=== PATIENT | male | born 1980 | race Asian ===

== ENCOUNTER 2017-02-18 09:57 | Emergency (ER) | payer OTHER ==
[2017-02-18] MEDS ORDERED: Morphine INJ* 4 MG/ML 1 ML SYRINGE IV ONE ×2 (10:13→13:05)
[2017-02-18] MEDS ORDERED: Ondansetron INJ* 2 MG/ML VIAL IV ONE (10:14)
[2017-02-18] MEDS ORDERED: Ketorolac INJ* 30 MG/ML 1 ML VIAL IV PUSH ONE (10:19)
[2017-02-18] MEDS: NS 0.9% 1000 ML* 2,000 ML IV ONE ×2 (10:25→11:30)
[2017-02-18 10:33] LABS: Hematocrit 45 % (42-52); Hemoglobin 14.5 g/dl (14.0-18.0); Mean Corpuscular HGB Conc 32 g/dl (31-36); Mean Corpuscular Hemoglobin 30 pg (27-31); Mean Corpuscular Volume 94 fL (80-94); Mean Platelet Volume 9 um3 (7.4-10.4); Red Blood Count 4.76 10^6/ul (4.0-5.4); Red Cell Distribution Width 13 % (10.5-15); White Blood Count 12.3 10^3/ul (3.5-10.8)
[2017-02-18 10:44] LABS: ALT 17 U/L (7-52); AST 16 U/L (13-39); Albumin 4.5 g/dL (3.2-5.2); Alkaline Phosphatase 67 U/L (34-104); Anion Gap 8 mmol/L (2-11); BUN/Creatinine Ratio 19.1 (8-20); Blood Urea Nitrogen 18 mg/dL (6-24); CO2 Carbon Dioxide 21 mmol/L (22-32); Calcium 8.8 mg/dL (8.6-10.3); Chloride 109 mmol/L (101-111); EGFR African American 115.5 (>60); EGFR Non-African American 89.8 (>60); Globulin 2.9 g/dL (2-4); Glucose 124 mg/dL (70-100); Lipase 17 U/L (11.0-82.0); Potassium 3.7 mmol/L (3.5-5.0); Sodium 138 mmol/L (133-145); Total Protein 7.4 g/dL (6.4-8.9)
--- NOTE | 2017-02-18 11:50 | RAD ---
CLINICAL HISTORY: Left-sided flank pain COMPARISON: None TECHNIQUE: Multiple contiguous axial CT scans were obtained of the abdomen and pelvis, without intravenous contrast enhancement. Coronal and sagittal multiplanar reformations are submitted for review. Oral contrast was not administered. FINDINGS: The study is limited by the lack of intravenous contrast. This limits evaluation of the solid organs and vasculature. LUNG BASES: The lung bases are clear. LIVER: The liver is normal in shape, size, contour, and attenuation. BILE DUCTS: There is no intrahepatic or extrahepatic biliary dilatation. GALLBLADDER: The gallbladder is normal, without pericholecystic inflammatory change. PANCREAS: The pancreas is normal, without mass or ductal dilatation. SPLEEN: Normal in size and appearance. UPPER GI TRACT: Evaluation of the gastrointestinal tract is limited by incomplete gastric distention. The upper GI tract is unremarkable. SMALL BOWEL AND MESENTERY: The small bowel is normal in contour, course, and caliber. There is no obstruction or dilatation. COLON: The colon is normal in contour, course, caliber. There is no pericolonic inflammatory change. There is a tubular, vermiform, hollow viscus that is blind ending, and originates from the cecum, consistent with a normal appendix. There is no periappendiceal inflammatory change. This best seen on axial images 120-124 ADRENALS: Normal bilaterally. KIDNEYS: There is stranding of the perinephric and periureteral fat. There is mild hydroureter. There is a 0.4 cm calculus of the distal third of the left ureter BLADDER: The bladder is smooth in contour. PELVIC ORGANS: The prostate gland is normal. The seminal vesicles are symmetric. AORTA: The aorta is normal. IVC: Unremarkable LYMPH NODES: There is no lymphadenopathy by size criteria. ABDOMINAL WALL: There is no evidence for abdominal wall hernia. BONES AND SOFT TISSUES: The bones and soft tissues are unremarkable. OTHER: None IMPRESSION: 0.4 CM DISTAL LEFT URETERAL CALCULUS WITH MILD HYDROURETER AND STRANDING OF THE PERINEPHRIC AND PERIURETERAL FAT
[2017-02-18] MEDS ORDERED: HYDROmorphone* 1 MG/ML 1 ML SYR IV SLOW PU ONE (11:53)
[2017-02-18] MEDS ORDERED: Tamsulosin CAP* 0.4 MG PO ONE (12:12)
[2017-02-18 13:12] LABS: Urine Bacteria Absent (Absent); Urine Bilirubin Negative (Negative); Urine Glucose Negative (Negative); Urine Nitrite Negative (Negative)
--- NOTE | 2017-02-18 14:05 | ED ---
GI/ HPI - HPI Summary HPI Summary: 36M presents with left flank pain for a day. He admits to nausea and vomiting. He denies any dysuria, hematuria, frequency, or urgency. He denies any fever , diarrhea or constipation. He has not taken anything for pain. He has never had this pain before. He denies any previous abdominal surgeries. He is in extreme pain. He speaks Serbian and a friend is translating. - History of Current Complaint Chief Complaint: EDFlankPain Time Seen by Provider: 02/18/17 10:08 Stated Complaint: LT FLANK PAIN Pain Intensity: 10 - Allergy/Home Medications Allergies/Adverse Reactions: Allergies Allergy/AdvReac Type Severity Reaction Status Date / Time No Known Allergies Allergy Verified 02/18/17 10:19 PMH/Surg Hx/FS Hx/Imm Hx Endocrine/Hematology History: Denies: Hx Anticoagulant Therapy Cardiovascular History: Denies: Hx Hypertension Infectious Disease History: No Infectious Disease History: Denies: Traveled Outside the [place] in Last 30 Days - Family History Known Family History: Negative: Cardiac Disease - Social History Alcohol Use: Occasionally Substance Use Type: Reports: None Smoking Status (MU): Current Every Day Smoker Review of Systems Negative: Fever Negative: Chest Pain Positive: Vomiting, Nausea. Negative: Diarrhea Positive: flank pain All Other Systems Reviewed And Are Negative: Yes Physical Exam Triage Information Reviewed: Yes Vital Signs On Initial Exam: Initial Vitals Temp Pulse Resp BP Pulse Ox 97.9 F 87 24 139/96 98 02/18/17 10:01 02/18/17 10:01 02/18/17 10:01 02/18/17 10:01 02/18/17 10:01 Vital Signs Reviewed: Yes Appearance: Positive: Pain Distress Skin: Positive: Warm, Dry Head/Face: Positive: Normal Head/Face Inspection Eyes: Positive: Normal, Conjunctiva Clear ENT: Positive: Normal ENT inspection, Pharynx normal, TMs normal Respiratory/Lung Sounds: Positive: Clear to Auscultation, Breath Sounds Present Cardiovascular: Positive: Normal, RRR Abdomen Description: Positive: Soft, CVA Tenderness (L), Other: - tender on left side abdomen, no rebound Bowel Sounds: Positive: Present - Daniel Coma Scale Coma Scale Total: 15 Diagnostics - Vital Signs Vital Signs Temp Pulse Resp BP Pulse Ox 02/18/17 13:44 98.2 F 74 18 129/75 99 02/18/17 12:00 24 02/18/17 10:20 20 02/18/17 10:08 97.9 F 87 24 139/96 98 02/18/17 10:01 97.9 F 87 24 139/96 98 - Laboratory Lab Results: Lab Results 02/18/17 02/18/17 02/18/17 Range/Units 10:10 10:10 12:32 WBC 12.3 H (3.5-10.8) 10^3/ul RBC 4.76 (4.0-5.4) 10^6/ul Hgb 14.5 (14.0-18.0) g/dl Hct 45 (42-52) % MCV 94 (80-94) fL MCH 30 (27-31) pg MCHC 32 (31-36) g/dl RDW 13 (10.5-15) % Plt Count 262 (150-450) 10^3/ul MPV 9 (7.4-10.4) um3 Neut % (Auto) 70.1 (38-83) % Lymph % (Auto) 17.1 L (25-47) % [place] % (Auto) 7.0 (1-9) % Eos % (Auto) 4.5 (0-6) % Baso % (Auto) 1.3 (0-2) % Absolute Neuts (auto) 8.6 H (1.5-7.7) 10^3/ul Absolute Lymphs (auto) 2.1 (1.0-4.8) 10^3/ul Absolute Monos (auto) 0.9 H (0-0.8) 10^3/ul Absolute Eos (auto) 0.6 (0-0.6) 10^3/ul Absolute Basos (auto) 0.2 (0-0.2) 10^3/ul Absolute Nucleated RBC 0.02 10^3/ul Nucleated RBC % 0.1 Sodium 138 (133-145) mmol/L Potassium 3.7 (3.5-5.0) mmol/L Chloride 109 (101-111) mmol/L Carbon Dioxide 21 L (22-32) mmol/L Anion Gap 8 (2-11) mmol/L BUN 18 (6-24) mg/dL Creatinine 0.94 (0.67-1.17) mg/dL Est GFR ( Amer) 115.5 (>60) Est GFR (Non-Af Amer) 89.8 (>60) BUN/Creatinine Ratio 19.1 (8-20) Glucose 124 H (70-100) mg/dL Calcium 8.8 (8.6-10.3) mg/dL Total Bilirubin 0.30 (0.2-1.0) mg/dL AST 16 (13-39) U/L ALT 17 (7-52) U/L Alkaline Phosphatase 67 (34-104) U/L C-React Prot High Sens < 0.20 mg/L Total Protein 7.4 (6.4-8.9) g/dL Albumin 4.5 (3.2-5.2) g/dL Globulin 2.9 (2-4) g/dL Albumin/Globulin Ratio 1.6 (1-3) Lipase 17 (11.0-82.0) U/L Urine Color Samantha Urine Appearance Cloudy Urine pH 5.0 (5-9) Ur Specific [place] 1.025 (1.010-1.030) Urine Protein 1+(30 mg/dl) H (Negative) Urine Ketones Negative (Negative) Urine Blood 3+ H (Negative) Urine Nitrate Negative (Negative) Urine Bilirubin Negative (Negative) Urine Urobilinogen Negative (Negative) Ur Leukocyte Esterase Negative (Negative) Urine WBC (Auto) Absent (Absent) Urine RBC (Auto) 3+(>10/hpf) H (Absent) Ur Squamous Epith Cells Present H (Absent) Calcium Oxalate Crystal Present H (Absent) Urine Bacteria Absent (Absent) Urine Glucose Negative (Negative) Urine Ascorbic Acid * H (Negative) Result Diagrams: 02/18/17 10:10 02/18/17 10:10 Lab Statement: Any lab studies that have been ordered have been reviewed, and results considered in the medical decision making process. - CT abd CT Interpretation: Positive (See Comments) - IMPRESSION: 0.4 CM DISTAL LEFT URETERAL CALCULUS WITH MILD HYDROURETER AND STRANDING OF THE PERINEPHRIC AND PERIURETERAL FAT CT Interpretation Completed By: Radiologist JONAH Course/Dx - Course Course Of Treatment: 36M presents with left flank pain for a day. He admits to nausea and vomiting. He denies any dysuria, hematuria, frequency, or urgency. He denies any fever, diarrhea or constipation. He has not taken anything for pain. He has never had this pain before. He denies any previous abdominal surgeries. He is in extreme pain. CVA tenderness left. u/a normal with blood. CT shows 4cm stone. pain controlled in ED with morphine. no urology coverage but stone is 4mm so should pass on its own. will send home with flomax, pain medication and nausea medicaiton, told to follow up with urology. told to return if pain not managed at home and told to follow up with primary. patient understands and agrees with plan as translated by friend. - Diagnoses Differential Diagnoses - Male: Pyelonephritis, Ureteral Calculi, Urinary Tract Infection Provider Diagnoses: Kidney stone on left side Discharge - Discharge Plan Condition: Good Disposition: HOME Prescriptions: Ibuprofen TAB* [Motrin TAB* 800 MG] 800 mg PO Q6H #30 tab Ondansetron ODT TAB* [Zofran 4 MG Odt TAB*] 4 mg PO Q6H PRN #20 tab.odt PRN Reason: Nausea Tamsulosin CAP* [Flomax CAP*] 0.4 mg PO DAILY #7 cap oxyCODONE/Acetamin 5/325 MG* [Percocet 5/325 TAB*] 1 tab PO Q6H PRN #20 tab MDD 6 PRN Reason: Pain Patient Education Materials: Kidney Stones (ED) Print Language: MANDARIN Referrals: Non Staff,Doctor [Primary Care Provider] - Rishi Lares MD [Medical Doctor] - Additional Instructions: Take ibuprofen every 6 hours Use Perocet as needed every 6 hours for intense pain, will make constipated Take Zofran as needed every 6 hours for nausea Take Flomax daily starting tomorrow, first dose given in ED until stone expelled , make sure stand up slowly Strain urine to catch stone and bring to urologist Call urologist on Saturday for follow up appointment Return to ED if unable to manage pain at home, develop fever, or any new or worsening symptoms
[2017-02-18 14:31] VITALS: BP 119/76
== END 2017-02-18 14:30 | disposition home or self-care (01) ==
LOC: ED 09:57
DX: R10.84 Generalized abdominal pain (principal); N20.0 Calculus of kidney; R11.2 Nausea with vomiting, unspecified; F17.210 Nicotine dependence, cigarettes, uncomplicated
CPT/HCPCS: 36415; 74176; 80053; 81003; 81015; 83690; 85025; 86141; 99283; J1170; J1885; J2270; J2405